=== PATIENT | male | born 1970 | race Caucasian/White ===

== ENCOUNTER 2018-07-07 17:56 | Emergency (ER) | payer BC ==
[2018-07-07] MEDS ORDERED: Diphtheria,Pertussis(Acell),Tetanus Vaccine 0.5 ML Syringe IM ONE (19:24)
--- NOTE | 2018-07-07 20:06 | EDM.PDOC ---
ED HPI GENERAL MEDICAL PROBLEM - General Chief Complaint: Laceration Stated Complaint: RT RING FINGER LAC Time Seen by Provider: 07/07/18 19:03 Source of Information: Reports: Patient History Limitations: Reports: No Limitations - History of Present Illness INITIAL COMMENTS - FREE TEXT/NARRATIVE: This is a 47-year-old male. He was packing some household goods into a bag and he reached in the bag and there was a razor blade that the guard came off of and he hit his right ring finger on the razor blade causing a chunk of skin to be avulsed. It was bleeding quite a bit so he comes to the ER for evaluation. He is not up-to-date with his tetanus. He denies any other acute symptoms. Right Finger-Ring Pain Score (Numeric/FACES): 4 - Related Data Allergies Allergy/AdvReac Type Severity Reaction Status Date / Time No Known Allergies Allergy Verified 06/14/17 07:03 Home Meds: Home Meds Escitalopram [Lexapro] 10 mg PO DAILY 12/09/17 [History] Olmesartan/Hydrochlorothiazide [Benicar HCT 40-12.5 MG] 1 each PO DAILY [History] Past Medical History Cardiovascular History: Reports: Hypertension Psychiatric History: Reports: Anxiety, Depression - Past Surgical History HEENT Surgical History: Reports: Oral Surgery, Tonsillectomy Social & Family History - Tobacco Use Smoking Status *Q: Never Smoker - Caffeine Use Caffeine Use: Reports: Coffee, Soda - Recreational Drug Use Recreational Drug Use: No - Living Situation & Occupation Living situation: Reports: Occupation: Employed ED ROS GENERAL - Review of Systems Review Of Systems: See Below Constitutional: Denies: Fever, Chills HEENT: Reports: No Symptoms Respiratory: Reports: No Symptoms Cardiovascular: Reports: No Symptoms Endocrine: Reports: No Symptoms GI/Abdominal: Reports: No Symptoms : Reports: No Symptoms Musculoskeletal: Reports: Other (As per history of present illness) Skin: Reports: Other (As per history of present illness) Neurological: Reports: No Symptoms Psychiatric: Reports: No Symptoms ED EXAM, SKIN/RASH Exam: See Below Exam Limited By: No Limitations General Appearance: Alert, WD/WN, No Apparent Distress Eye Exam: Bilateral Eye: Normal Inspection Ears: Normal External Exam Nose: Normal Inspection Throat/Mouth: Normal Lips, Normal Voice, No Airway Compromise Head: Normocephalic Neck: Supple Respiratory/Chest: No Respiratory Distress Back Exam: Full Range of Motion Extremities: Other (On his right ring finger on the very tip he has a 3 mm by about 8 mm full-thickness tissue off the tip, but this is not something that can be sutured together is just missing tissue, bleeding is controlled at this time, there is no other acute injuries) Neurological: Alert, Oriented Psychiatric: Normal Affect, Normal Mood Skin: Warm, Dry Course - Vital Signs Last Recorded V/S: Last Vital Signs Temp 98.9 F 07/07/18 18:42 Pulse 79 07/07/18 18:42 Resp 16 07/07/18 18:42 BP 159/92 H 07/07/18 18:42 Pulse Ox 100 07/07/18 18:42 - Orders/Labs/Meds Orders: Active Orders 24 hr Category Date Time Status Vaccines to be Administered [RC] PER UNIT ROUTINE Care 07/07/18 19:24 Active Meds: Medications Discontinued Medications Generic Name Dose Route Start Last Admin Trade Name Heather PRN Reason Stop Dose Admin Diphtheria/Tetanus/Acell Pertussis 0.5 ml 07/07/18 19:24 07/07/18 19:42 Adacel IM 07/07/18 19:25 0.5 ml .ONCE ONE Administration - Re-Assessments/Exams Free Text/Narrative Re-Assessment/Exam: 07/07/2018 19:45 I spoke to the patient regarding the wound that there is nothing there to suture. We will clean it up and put some antibiotic ointment and a dressing on that finger and that when he goes to take that off in the next 24 hours he needs to soak it really well so when he pulls the Band-Aid off and doesn't share off the scab. We will provide a tetanus booster as well. Departure - Departure Time of Disposition: 20:03 Disposition: Home, Self-Care 01 Condition: Good Clinical Impression: Laceration of right ring finger Qualifiers: Encounter type: initial encounter Damage to nail status: without damage Foreign body presence: without foreign body Qualified Code(s): S61.214A - Laceration without foreign body of right ring finger without damage to nail, initial encounter - Discharge Information *PRESCRIPTION DRUG MONITORING PROGRAM REVIEWED*: Not Applicable *COPY OF PRESCRIPTION DRUG MONITORING REPORT IN PATIENT RONNIE: Not Applicable Instructions: Laceration Care, Adult Referrals: Ariel Weiss MD [Primary Care Provider] - Forms: ED Department Discharge Additional Instructions: Change the dressing twice a day and make sure you soak the dressing before you take it off so you don't tear the scab, watch for infection, follow-up with your family doctor as needed or the ER as needed - My Orders Last 24 Hours: My Active Orders 07/07/18 19:24 Vaccines to be Administered [RC] PER UNIT ROUTINE - Assessment/Plan Last 24 Hours: My Active Orders 07/07/18 19:24 Vaccines to be Administered [RC] PER UNIT ROUTINE
== END 2018-07-07 20:23 | disposition home or self-care (01) ==
LOC: JD.ED 17:56
DX: S61.214A Laceration without foreign body of right ring finger without damage to nail, initial encounter (principal); Z23 Encounter for immunization; I10 Essential (primary) hypertension; F41.9 Anxiety disorder, unspecified; F32.9 Major depressive disorder, single episode, unspecified; Z79.899 Other long term (current) drug therapy; W26.8XXA Contact with other sharp object(s), not elsewhere classified, initial encounter
CPT/HCPCS: 90471; 90700; 99282

== ENCOUNTER 2023-03-01 09:48 | Emergency (ER) | payer OTHER | END 2023-03-01 12:35 | disposition home or self-care (01) | LOC: JD.ED 09:48 | DX: S16.1XXA Strain of muscle, fascia and tendon at neck level, initial encounter (principal); V49.49XA Driver injured in collision with other motor vehicles in traffic accident, initial encounter | CPT/HCPCS: 72125; 72125-26; 99283; 99284 ==